=== PATIENT | male | born 1960 | race American Indian/Alaskan Native ===

== ENCOUNTER 2016-04-29 14:14 | Inpatient (IN) | payer MEDICAID ==
[~2016-04-29] VITALS: Ht 157.5 cm; Wt 60.3 kg
[~2016-04-29 14:14] MED LIST: ASPI81CH43; ATOR20TA PO; METH4PAK26 PO; METO50TA7 PO; NITR0.4S31; TRAZ50TA2 PO
[2016-04-29 14:43] LABS: Basophils # (auto) 0 uL; Basophils % (auto) 0.2 % (0.0-2.0); Eosinophils # (auto) 0 uL; Hematocrit 40.8 % (41.0-53.0); Hemoglobin 13.4 g/dL (13.5-17.5); Lymphocytes # (auto) 0.5 uL; Lymphocytes % (auto) 4.4 % (10.0-50.0); Mean Corpuscular Hemoglobin 31.3 pg (28.0-32.0); Mean Corpuscular Hgb Conc. 32.9 g/dL (32.0-36.0); Mean Corpuscular Volume 95.2 fL (80.0-100.0); Mean Platelet Volume 8.2 fL (7.4-10.4); Monocytes # (auto) 0.3 uL; Monocytes % (auto) 2.6 % (0.0-12.0); Neutrophils % (auto) 92.8 % (37.0-80.0); Platelet Count (auto) 228 10^3/uL (140-450); Red Cell Distribution Width 16.9 % (11.6-16.0); White Blood Cell 11.8 10^3/uL (4.4-10.8)
[2016-04-29 15:10] LABS: Albumin 2.9 g/dL (3.4-5.0); BUN/Creatinine Ratio 18.8; Bilirubin, Total 0.5 mg/dL (0.2-1.0); Calcium 8.6 mg/dL (8.5-10.1); Magnesium 2.5 mg/dL (1.6-2.6); Potassium 3.9 mmol/L (3.5-5.1); Total Protein 7.2 g/dL (6.4-8.2)
[2016-04-29] MEDS ORDERED: SODIUM CHLORIDE 0.9% 500 ML IV ONE (15:30)
[2016-04-29] MEDS ORDERED: LEVOFLOXACIN 500MG 100 ML IV ONE (15:30)
[2016-04-29 16:14] LABS: REFLEX LACTIC ACID YES OR NO YES
[2016-04-29] MEDS ORDERED: cefTRIAXone 1GM/50ML D5W 50 ML IV ONE (18:45)
[2016-04-29] MEDS ORDERED: ASPirin 81 mg TAB PO ONE (19:15)
[2016-04-29] MEDS ORDERED: FOLIC ACID 1 MG TAB PO ONE (19:15)
[2016-04-29 19:50] VITALS: BP 105/74
[2016-04-29] MEDS ORDERED: AZITHROMYCIN 500MG/D5W 250ML 250 ML IV ONE (20:00)
[2016-04-29 22:00] VITALS: BP 105/74
[2016-04-29] MEDS ORDERED: traZODone HCL 50 MG TAB PO SCH (22:00)
[2016-04-30] MEDS: SODIUM CHLORIDE 0.9% 1,000 ML IV SCH ×2 (01:04→09:29)
[2016-04-30 04:48] VITALS: BP 113/76
[2016-04-30 05:18] LABS: Basophils # (auto) 0 uL; Basophils % (auto) 0.5 % (0.0-2.0); Eosinophils # (auto) 0 uL; Eosinophils % (auto) 0.5 % (0.0-7.0); Hematocrit 35.2 % (41.0-53.0); Hemoglobin 11.6 g/dL (13.5-17.5); Lymphocytes % (auto) 10.6 % (10.0-50.0); Mean Corpuscular Hemoglobin 31.8 pg (28.0-32.0); Mean Corpuscular Hgb Conc. 32.9 g/dL (32.0-36.0); Mean Corpuscular Volume 96.7 fL (80.0-100.0); Mean Platelet Volume 8.6 fL (7.4-10.4); Monocytes # (auto) 0.7 uL; Monocytes % (auto) 7.6 % (0.0-12.0); Neutrophils # (auto) 7.3 uL; Neutrophils % (auto) 80.8 % (37.0-80.0); Platelet Count (auto) 161 10^3/uL (140-450); Red Cell Distribution Width 15.6 % (11.6-16.0)
[2016-04-30] MEDS ORDERED: cefTRIAXone 1GM/50ML D5W 50 ML IV SCH (09:00)
[2016-04-30] MEDS ORDERED: METHYLPREDNISOLONE 4 MG TAB PO SCH (10:00)
[2016-04-30] MEDS ORDERED: ASPirin 81 mg TAB PO SCH (10:00)
[2016-04-30] MEDS ORDERED: AZITHROMYCIN 500MG/D5W 250ML 250 ML IV SCH (10:00)
[2016-04-30] MEDS ORDERED: FOLIC ACID 1 MG TAB PO SCH (10:00)
== END 2016-04-30 13:40 | disposition home or self-care (01) | DRG 139 ==
LOC: ER 14:14 → OVERFLOW 14:15 → CENTRAL 19:31
PROVIDERS: ADMIT Internal Medicine; ATTEND Internal Medicine
DX: J18.9 Pneumonia, unspecified organism (principal); I10 Essential (primary) hypertension; I25.10 Atherosclerotic heart disease of native coronary artery without angina pectoris; E78.5 Hyperlipidemia, unspecified; T45.1X5A Adverse effect of antineoplastic and immunosuppressive drugs, initial encounter; Z82.49 Family history of ischemic heart disease and other diseases of the circulatory system; Z83.3 Family history of diabetes mellitus; Z85.118 Personal history of other malignant neoplasm of bronchus and lung; Z87.891 Personal history of nicotine dependence; Z92.21 Personal history of antineoplastic chemotherapy; Z92.3 Personal history of irradiation
CPT/HCPCS: 36415; 71010; 71020; 71250; 80053; 83605; 83735; 84484; 85025; 87040; 93005; J0696; J1956

== ENCOUNTER 2017-05-16 12:40 | Observation (INO) | payer MEDICARE, MEDICAID ==
[~2017-05-16] VITALS: Ht 157.5 cm; Wt 58.1 kg
[~2017-05-16 12:40] MED LIST changes: -METO50TA7 PO; -NITR0.4S31
[2017-05-16 13:46] LABS: Basophils # (auto) 0 uL; Basophils % (auto) 1.1 % (0.0-2.0); Eosinophils # (auto) 0 uL; Eosinophils % (auto) 1.1 % (0.0-7.0); Hematocrit 43.6 % (41.0-53.0); Hemoglobin 14.8 g/dL (13.5-17.5); Lymphocytes # (auto) 1.1 uL; Lymphocytes % (auto) 25.7 % (10.0-50.0); Mean Corpuscular Hemoglobin 31.9 pg (28.0-32.0); Mean Corpuscular Volume 93.7 fL (80.0-100.0); Monocytes # (auto) 0.4 uL; Neutrophils # (auto) 2.6 uL; Neutrophils % (auto) 62.1 % (37.0-80.0); Nucleated Red Blood Cells % 0.3 %; Platelet Count (auto) 175 10^3/uL (140-450); Red Blood Cells 4.65 10^6/uL (4.5-5.90); Red Cell Distribution Width 15.5 % (11.8-14.3); White Blood Cell 4.2 10^3/uL (4.4-10.8)
[2017-05-16 14:05] LABS: Albumin 3.8 g/dL (3.4-5.0); BUN/Creatinine Ratio 13.5; Bilirubin, Total 0.6 mg/dL (0.2-1.0); Calcium 8.7 mg/dL (8.5-10.1); Magnesium 2.4 mg/dL (1.6-2.6); Potassium 4.2 mmol/L (3.5-5.1); Total Protein 8.2 g/dL (6.4-8.2)
[2017-05-16] MEDS ORDERED: SODIUM CHLORIDE 0.9% 500 ML IV ONE (18:00)
[2017-05-16] MEDS ORDERED: ASPirin 81 mg TAB PO ONE (18:00)
[2017-05-16 18:54] LABS: INR 0.92 (0.9-1.15); Partial Thromboplastin Time 30.6 sec (22.64-33.71)
[2017-05-16 20:05] VITALS: BP 116/91
== END 2017-05-16 21:04 | disposition left against medical advice (07) | DRG 303 ==
LOC: ER 12:40 → OVERFLOW 17:48 → ER 21:03
PROVIDERS: ADMIT Family Medicine; ATTEND Family Medicine
DX: I25.110 Atherosclerotic heart disease of native coronary artery with unstable angina pectoris (principal); C34.91 Malignant neoplasm of unspecified part of right bronchus or lung; I10 Essential (primary) hypertension; E78.5 Hyperlipidemia, unspecified; Z82.49 Family history of ischemic heart disease and other diseases of the circulatory system; Z83.3 Family history of diabetes mellitus; Z85.118 Personal history of other malignant neoplasm of bronchus and lung; Z87.891 Personal history of nicotine dependence
CPT/HCPCS: 36415; 71046; 80053; 83735; 83880; 84443; 84484; 85025; 85610; 85730; 93005; 96360; 96361; 99285; G0378; J7040

== ENCOUNTER 2017-05-20 14:16 | Inpatient (IN) | payer MEDICARE, MEDICAID ==
[~2017-05-20] VITALS: Ht 157.5 cm; Wt 67.9 kg
[2017-05-20 15:45] LABS: Albumin 3.7 g/dL (3.4-5.0); Basophils # (auto) 0 uL; Basophils % (auto) 0.5 % (0.0-2.0); Calcium 8.5 mg/dL (8.5-10.1); Eosinophils # (auto) 0 uL; Eosinophils % (auto) 0.1 % (0.0-7.0); Hematocrit 43.9 % (41.0-53.0); Hemoglobin 14.5 g/dL (13.5-17.5); Lymphocytes # (auto) 0.8 uL; Lymphocytes % (auto) 8.8 % (10.0-50.0); Mean Corpuscular Hemoglobin 31.6 pg (28.0-32.0); Mean Corpuscular Hgb Conc. 33.1 g/dL (32.0-36.0); Mean Corpuscular Volume 95.3 fL (80.0-100.0); Monocytes # (auto) 0.7 uL; Monocytes % (auto) 7.6 % (0.0-12.0); Neutrophils # (auto) 7.3 uL; Platelet Count (auto) 195 10^3/uL (140-450); Potassium 3.8 mmol/L (3.5-5.1); Red Blood Cells 4.61 10^6/uL (4.5-5.90); Red Cell Distribution Width 15.4 % (11.8-14.3); White Blood Cell 8.8 10^3/uL (4.4-10.8)
[2017-05-20 15:52] LABS: Bilirubin, Total 0.5 mg/dL (0.2-1.0); Total Protein 7.8 g/dL (6.4-8.2)
[2017-05-20] MEDS ORDERED: SODIUM CHLORIDE 0.9% 1,000 ML IV ONE (16:36)
[2017-05-20] MEDS ORDERED: MECLIZINE HCL 25 MG TAB PO ONE (16:45)
[2017-05-20] MEDS: SODIUM CHLORIDE 0.9% 1,000 ML IV SCH (18:11)
[2017-05-20] MEDS ORDERED: LORazepam 0.5 MG TAB PO PRN (18:15)
[2017-05-20] MEDS ORDERED: ALBUTEROL SULF 2.5 MG/0.5ML(0.5%) NEB SOLN NEB PRN (18:15)
[2017-05-20] MEDS ORDERED: MORPHINE SULF INJ 2 MG/ML SYRINGE 1ML IV PRN (18:15)
[2017-05-20] MEDS ORDERED: HYDROcodone-ACET 5/325MG TAB PO PRN (18:15)
[2017-05-20] MEDS ORDERED: PROMETHAZINE HCL 25 MG/ML 1ML IV PRN (18:15)
[2017-05-20] MEDS ORDERED: NITROGLYCERIN 0.4 MG SL TAB SL PRN (18:15)
[2017-05-20] MEDS ORDERED: LACTULOSE 20Gm/30ML SOLN PO PRN ×2 (18:15)
[2017-05-20] MEDS ORDERED: cefTRIAXone 1GM/10ml IVPUSH 10 ML IV ONE (18:15)
[2017-05-20] MEDS ORDERED: TEMAZEPAM 15 MG CAP PO PRN (18:15)
[2017-05-20] MEDS ORDERED: MORPHINE SULFATE 10 MG/ML INJ 1ML SDV IV PRN (18:15)
[2017-05-20 18:37] LABS: CRP High Sensitivity 0.13 mg/dL (< 0.3)
[2017-05-20 18:46] LABS: Folate (Folic Acid) > 24.00 ng/mL (5.38-24)
[2017-05-20 19:24] LABS: Free T3 2.05 pg/mL (2.3-4.2); Free T4 (Free Thyroxine) 1.31 ng/dL (0.89-1.76)
[2017-05-20] MEDS: ACETAMINOPHEN 500 MG TAB PO PRN ×2 (20:51→20:53)
[2017-05-20 22:00] VITALS: BP_SYST 126; BP_SYST 138; BP_DIAS 65; BP_DIAS 81
[2017-05-20] MEDS: METOPROLOL TARTRATE 25 MG TAB PO SCH (22:00)
[2017-05-20] MEDS ORDERED: traZODone HCL 50 MG TAB PO SCH (22:00)
[2017-05-20] MEDS ORDERED: ATORVASTATIN 20 MG TAB PO SCH (22:00)
[2017-05-20] MEDS: ALBUTEROL SULF 2.5 MG/0.5ML(0.5%) NEB SOLN NEB SCH (23:56)
[2017-05-21] VITALS (69 sets, daily range): BP systolic 64–157; BP diastolic 41–103
[2017-05-21] MEDS ORDERED: HYDROmorphone HCL 2 MG/ML VL IV ONE ×2 (02:45→03:00)
[2017-05-21] MEDS ORDERED: NALOXONE HCL 0.4 MG/ML VIAL ONE (05:23)
[2017-05-21] MEDS ORDERED: METOPROLOL TARTRATE 1MG/1ML-5ML VIAL IV ONE (05:41)
[2017-05-21] MEDS: FUROSEMIDE 40 MG/4 ML VIAL IV ONE ×2 (06:00→09:25)
[2017-05-21] MEDS ORDERED: SUCCINYLCHOLINE CHLORIDE 20 MG/ML 10ML VIAL IV ONE ×2 (06:02→06:15)
[2017-05-21] MEDS ORDERED: ETOMIDATE (2MG/ML) 20ML VIAL IV ONE ×2 (06:03→06:15)
[2017-05-21] MEDS ORDERED: NOREPINEPHRINE 8 MG/250ML KIT 250 ML IV ONE (06:13)
[2017-05-21] MEDS ORDERED: PROPOFOL 100 ML IV ONE (06:17)
[2017-05-21] MEDS: PROPOFOL 100 ML IV SCH (06:59)
[2017-05-21 07:12] LABS: Hemoglobin 14.6 g/dL (13.5-17.5)
[2017-05-21 07:42] LABS: Albumin 3.8 g/dL (3.4-5.0); BUN/Creatinine Ratio 14.1; Bilirubin, Total 0.7 mg/dL (0.2-1.0); Calcium 8.3 mg/dL (8.5-10.1); Potassium 4.2 mmol/L (3.5-5.1); Total Protein 8.3 g/dL (6.4-8.2)
[2017-05-21 07:45] LABS: INR 0.95 (0.9-1.15); Partial Thromboplastin Time 30.1 sec (22.64-33.71); Prothrombin Time 10.3 sec (9.37-12.3)
[2017-05-21] MEDS ORDERED: PANTOPRAZOLE 40 MG/10 ML VIAL IV ONE (08:03)
[2017-05-21] MEDS ORDERED: cefTRIAXone 1GM/10ml IVPUSH 10 ML IV SCH (09:00)
[2017-05-21] MEDS ORDERED: ACETAMINOPHEN 650 mg PER 20 mL UD ONE (09:10)
[2017-05-21] MEDS ORDERED: ACETAMINOPHEN 650 mg PER 20 mL UD PO PRN (09:15)
[2017-05-21] MEDS ORDERED: VANCOMYCIN PER PHARMACY 0 MG IV SCH (09:15)
[2017-05-21] MEDS: METOPROLOL TARTRATE 25 MG TAB PO SCH (09:26)
[2017-05-21] MEDS: PANTOPRAZOLE 40 MG/10 ML VIAL IV SCH ×2 (09:26→22:23)
[2017-05-21] MEDS: ALBUTEROL SULF 2.5 MG/0.5ML(0.5%) NEB SOLN NEB SCH ×3 (09:34→18:31)
[2017-05-21 09:46] LABS: Alcohol, Urine < 3.0 mg/dL (0-5); Amphetamine Screen, Urine NEGATIVE (NEGATIVE); Barbiturate Scree,Urine NEGATIVE (NEGATIVE); Benzodiazephine Screen, Urine NEGATIVE (NEGATIVE); Cannabinoid Screen, Urine POSITIVE (NEGATIVE); Cocaine Screen, Urine NEGATIVE (NEGATIVE); Opiate Scree,Urine POSITIVE (NEGATIVE); Phencyclidine Screen, Urine NEGATIVE (NEGATIVE)
[2017-05-21 09:48] LABS: Urine Bacteria NONE SEEN /hpf (None Seen); Urine Blood 1+ /uL (Negative); Urine Specific Gravity 1.023 (1.001-1.035); Urine WBC 5 /hpf (0 - 3)
[2017-05-21] MEDS ORDERED: ENOXAPARIN SOD 40 MG/0.4 ML SYRINGE SC SCH ×2 (10:00)
[2017-05-21] MEDS: VANCOMYCIN 1GM/250ML 250 ML IV SCH ×2 (10:00→22:22)
[2017-05-21] MEDS ORDERED: ASPirin 81 mg TAB PO SCH (10:00)
[2017-05-21] MEDS ORDERED: AZITHROMYCIN 500MG/ 250ML 250 ML IV SCH (10:00)
[2017-05-21] MEDS ORDERED: NITROGLYCERIN 0.2MG/HR TOPICAL PATCH TD SCH (10:00)
[2017-05-21] MEDS ORDERED: ALBUMIN 25% 200 ML IV ONE (11:42)
[2017-05-21] MEDS: ALBUMIN 25% 100 ML IV SCH ×2 (11:45→13:38)
[2017-05-21] MEDS: NOREPINEPHRINE 8 MG/250ML KIT 250 ML IV SCH ×3 (12:11→20:17)
[2017-05-21] MEDS ORDERED: ALBUMIN 25% 100 ML IV ONE (12:15)
[2017-05-21] MEDS: SODIUM CHLORIDE 0.9% 1,000 ML IV SCH ×2 (12:34→20:19)
[2017-05-21] MEDS: PIPERACILLIN-TAZOB 3.375GM 50 ML IV SCH ×2 (13:37→18:27)
[2017-05-21] MEDS ORDERED: MORPHINE SULFATE 4 MG/ML SYR/VIAL IV PRN ×2 (19:45)
[2017-05-22] VITALS (104 sets, daily range): BP systolic 68–167; BP diastolic 42–121
[2017-05-22] MEDS: ALBUTEROL SULF 2.5 MG/0.5ML(0.5%) NEB SOLN NEB SCH ×2 (00:24→08:36)
[2017-05-22] MEDS: PIPERACILLIN-TAZOB 3.375GM 50 ML IV SCH ×4 (00:27→20:56)
[2017-05-22] MEDS: NOREPINEPHRINE 8 MG/250ML KIT 250 ML IV SCH (00:40)
[2017-05-22] MEDS: MIDAZOLAM DRIP 50 mg/50mL 50 ML IV SCH ×2 (01:38→05:49)
[2017-05-22 04:10] LABS: Basophils # (auto) 0 uL; Basophils % (auto) 0.4 % (0.0-2.0); Eosinophils # (auto) 0 uL; Eosinophils % (auto) 0.3 % (0.0-7.0); Hematocrit 42.5 % (41.0-53.0); Hemoglobin 14.4 g/dL (13.5-17.5); Lymphocytes # (auto) 0.7 uL; Lymphocytes % (auto) 7.4 % (10.0-50.0); Mean Corpuscular Hemoglobin 31.5 pg (28.0-32.0); Mean Corpuscular Hgb Conc. 33.8 g/dL (32.0-36.0); Mean Corpuscular Volume 93.3 fL (80.0-100.0); Monocytes # (auto) 0.5 uL; Monocytes % (auto) 5.8 % (0.0-12.0); Neutrophils # (auto) 8.1 uL; Neutrophils % (auto) 86.1 % (37.0-80.0); Nucleated Red Blood Cells % 0.1 %; Platelet Count (auto) 154 10^3/uL (140-450); Red Blood Cells 4.56 10^6/uL (4.5-5.90); Red Cell Distribution Width 15.6 % (11.8-14.3); White Blood Cell 9.4 10^3/uL (4.4-10.8)
[2017-05-22 04:20] LABS: BUN/Creatinine Ratio 10.3; Bilirubin, Total 1.4 mg/dL (0.2-1.0); Calcium 8.4 mg/dL (8.5-10.1); Potassium 3.7 mmol/L (3.5-5.1); Total Protein 7.9 g/dL (6.4-8.2)
[2017-05-22] MEDS: PROPOFOL 100 ML IV SCH (06:59)
[2017-05-22] MEDS: SODIUM CHLORIDE 0.9% 1,000 ML IV SCH (08:15)
[2017-05-22] MEDS: PANTOPRAZOLE 40 MG/10 ML VIAL IV SCH ×2 (10:00→21:38)
[2017-05-22] MEDS: VANCOMYCIN 1GM/250ML 250 ML IV SCH ×2 (10:00→22:30)
[2017-05-22] MEDS: NOREPINEPHRINE BITARTRATE 32 MG in D5W 5% 218 ML IV SCH (10:15)
[2017-05-22] MEDS ORDERED: AZITHROMYCIN 500MG/ 250ML 250 ML IV SCH (11:00)
[2017-05-22] MEDS ORDERED: SOD CHL 0.45% 1,000 ML IV ONE (11:15)
[2017-05-22] MEDS ORDERED: PHENYLEPHRINE INJ 20 MG in SODIUM CHL 0.9% 250 ML IV SCH (11:20)
[2017-05-22] MEDS ORDERED: ALBUTEROL SULF 2.5 MG/0.5ML(0.5%) NEB SOLN NEB PRN (11:30)
[2017-05-22] MEDS: PHENYLEPHRINE INJ 20 MG in D5W 5% 250 ML IV SCH ×2 (11:45→16:32)
[2017-05-22 11:58] LABS: Magnesium 2.5 mg/dL (1.6-2.6); Phosphorus 1.5 mg/dL (2.5-4.90)
[2017-05-22] MEDS: SOD CHL 0.45% WITH 20MEQ KCL 1,000 ML IV SCH (12:13)
[2017-05-22] MEDS ORDERED: FLUCONAZOLE 200MG/100ML 100 ML IV ONE (13:00)
[2017-05-22] MEDS ORDERED: PIPERACILLIN-TAZOB 3.375GM 50 ML IV SCH (13:00)
[2017-05-22] MEDS: FREE WATER GT SCH ×3 (14:30→21:38)
[2017-05-22] MEDS: LEVALBUTEROL HCL 1.25 MG/3 ML NEB IN SCH ×2 (15:06→21:59)
[2017-05-23] VITALS (103 sets, daily range): BP systolic 69–177; BP diastolic 48–113
[2017-05-23] MEDS: SOD CHL 0.45% WITH 20MEQ KCL 1,000 ML IV SCH ×2 (00:50→03:30)
[2017-05-23] MEDS: PIPERACILLIN-TAZOB 3.375GM 50 ML IV SCH ×4 (02:07→20:57)
[2017-05-23] MEDS: FREE WATER GT SCH ×7 (02:07→21:43)
[2017-05-23] MEDS: PHENYLEPHRINE INJ 20 MG in D5W 5% 250 ML IV SCH (03:30)
[2017-05-23 05:18] LABS: Basophils # (auto) 0.1 uL; Basophils % (auto) 0.6 % (0.0-2.0); Eosinophils # (auto) 0.1 uL; Eosinophils % (auto) 0.9 % (0.0-7.0); Hematocrit 43.3 % (41.0-53.0); Hemoglobin 14.6 g/dL (13.5-17.5); Lymphocytes # (auto) 0.8 uL; Lymphocytes % (auto) 7.7 % (10.0-50.0); Mean Corpuscular Hgb Conc. 33.6 g/dL (32.0-36.0); Mean Corpuscular Volume 95.2 fL (80.0-100.0); Monocytes # (auto) 0.6 uL; Monocytes % (auto) 5.8 % (0.0-12.0); Neutrophils # (auto) 8.4 uL; Nucleated Red Blood Cells % 0.1 %; Red Blood Cells 4.55 10^6/uL (4.5-5.90); Red Cell Distribution Width 16.1 % (11.8-14.3); White Blood Cell 9.9 10^3/uL (4.4-10.8)
[2017-05-23 05:25] LABS: Platelet Count (auto) 129 10^3/uL (140-450)
[2017-05-23] MEDS: LEVALBUTEROL HCL 1.25 MG/3 ML NEB IN SCH ×3 (06:27→22:00)
[2017-05-23 06:36] LABS: BUN/Creatinine Ratio 8.7; Calcium 9.6 mg/dL (8.5-10.1); Potassium 3.7 mmol/L (3.5-5.1)
[2017-05-23] MEDS: MIDAZOLAM DRIP 50 mg/50mL 50 ML IV SCH (06:59)
[2017-05-23] MEDS: PROPOFOL 100 ML IV SCH (06:59)
[2017-05-23] MEDS: VANCOMYCIN 1GM/250ML 250 ML IV SCH ×2 (10:00→21:43)
[2017-05-23] MEDS: PANTOPRAZOLE 40 MG/10 ML VIAL IV SCH ×2 (10:28→21:44)
[2017-05-23] MEDS: NOREPINEPHRINE BITARTRATE 32 MG in D5W 5% 218 ML IV SCH (10:28)
[2017-05-23] MEDS ORDERED: PHENYLEPHRINE INJ 80 MG in SODIUM CHL 0.9% 250 ML IV SCH (11:34)
[2017-05-23] MEDS: PHENYLEPHRINE INJ 80 MG in D5W 5% 250 ML IV SCH ×2 (12:18→20:58)
[2017-05-23] MEDS ORDERED: SODIUM CHLORIDE 0.9% 1,000 ML IV SCH ×3 (14:30→16:15)
[2017-05-23] MEDS: FLUCONAZOLE 200MG/100ML 100 ML IV SCH (15:00)
[2017-05-23] MEDS: VASOPRESSIN 50 UNITS in D5W 5% 247.5 ML IV SCH (16:15)
[2017-05-23] MEDS: SODIUM CHLORIDE 0.9% 1,000 ML IV SCH (19:15)
[2017-05-24] VITALS (104 sets, daily range): BP systolic 81–138; BP diastolic 16–102
[2017-05-24] MEDS: SODIUM CHLORIDE 0.9% 1,000 ML IV SCH ×4 (01:11→21:40)
[2017-05-24] MEDS: FREE WATER GT SCH ×6 (02:00→22:13)
[2017-05-24] MEDS: PIPERACILLIN-TAZOB 3.375GM 50 ML IV SCH ×4 (02:00→20:00)
[2017-05-24 03:55] LABS: Hematocrit 40.2 % (41.0-53.0); Hemoglobin 12.9 g/dL (13.5-17.5); Mean Corpuscular Hemoglobin 31.4 pg (28.0-32.0); Mean Corpuscular Hgb Conc. 32.2 g/dL (32.0-36.0); Mean Corpuscular Volume 97.4 fL (80.0-100.0); Platelet Count (auto) 82 10^3/uL (140-450); Red Blood Cells 4.13 10^6/uL (4.5-5.90); Red Cell Distribution Width 16.9 % (11.8-14.3); White Blood Cell 7.2 10^3/uL (4.4-10.8)
[2017-05-24 03:57] LABS: Basophils % (manual) 0 (0.0-2.0); Blast Cells 0; Metamyelocytes % 0; Myelocytes % 0; Promyelocytes % 0; Reactive Lymphocytes 0
[2017-05-24 04:11] LABS: Potassium 3.2 mmol/L (3.5-5.1)
[2017-05-24 04:12] LABS: BUN/Creatinine Ratio 8.4; Calcium 8.4 mg/dL (8.5-10.1)
[2017-05-24 05:10] LABS: Band Neutrophils % (manual) 3
[2017-05-24 05:11] LABS: Eosinophils % (manual) 2 (0-7); Lymphocytes % (manual) 8 (10.0-50.0); Monocytes % (manual) 3 (0-12)
[2017-05-24] MEDS: LEVALBUTEROL HCL 1.25 MG/3 ML NEB IN SCH ×3 (06:05→22:31)
[2017-05-24] MEDS: PROPOFOL 100 ML IV SCH (06:11)
[2017-05-24] MEDS: MIDAZOLAM DRIP 50 mg/50mL 50 ML IV SCH (06:11)
[2017-05-24] MEDS: POTASSIUM CHL 20MEQ/100ML 100 ML IV SCH ×4 (08:30→10:30)
[2017-05-24] MEDS: NOREPINEPHRINE BITARTRATE 32 MG in D5W 5% 218 ML IV SCH ×2 (09:09→14:15)
[2017-05-24] MEDS: VANCOMYCIN 1GM/250ML 250 ML IV SCH (10:00)
[2017-05-24] MEDS: PANTOPRAZOLE 40 MG/10 ML VIAL IV SCH ×2 (10:13→22:13)
[2017-05-24] MEDS: FLUCONAZOLE 200MG/100ML 100 ML IV SCH (13:00)
[2017-05-24] MEDS: PHENYLEPHRINE INJ 80 MG in D5W 5% 250 ML IV SCH (14:15)
[2017-05-24] MEDS: VASOPRESSIN 50 UNITS in D5W 5% 247.5 ML IV SCH (14:53)
[2017-05-25] VITALS (105 sets, daily range): BP systolic 78–157; BP diastolic 53–103
[2017-05-25] MEDS: PIPERACILLIN-TAZOB 3.375GM 50 ML IV SCH ×4 (02:00→20:00)
[2017-05-25] MEDS: FREE WATER GT SCH ×6 (02:00→22:00)
[2017-05-25 03:57] LABS: Platelet Count (auto) 44 10^3/uL (140-450)
[2017-05-25 03:59] LABS: Hemoglobin 12.4 g/dL (13.5-17.5); Mean Corpuscular Volume 97.5 fL (80.0-100.0); Red Blood Cells 3.89 10^6/uL (4.5-5.90); White Blood Cell 5.8 10^3/uL (4.4-10.8)
[2017-05-25 04:00] LABS: Mean Corpuscular Hemoglobin 31.8 pg (28.0-32.0); Mean Corpuscular Hgb Conc. 32.6 g/dL (32.0-36.0); Red Cell Distribution Width 17.4 % (11.8-14.3)
[2017-05-25 04:07] LABS: Basophils % (manual) 0 (0.0-2.0); Blast Cells 0; Metamyelocytes % 0; Myelocytes % 0; Promyelocytes % 0; Reactive Lymphocytes 0
[2017-05-25 04:17] LABS: Calcium 8.2 mg/dL (8.5-10.1); Potassium 4.5 mmol/L (3.5-5.1)
[2017-05-25 04:20] LABS: BUN/Creatinine Ratio 8.4
[2017-05-25] MEDS: SODIUM CHLORIDE 0.9% 1,000 ML IV SCH (04:20)
[2017-05-25 05:07] LABS: Band Neutrophils % (manual) 19; Eosinophils % (manual) 2 (0-7); Lymphocytes % (manual) 9 (10.0-50.0); Monocytes % (manual) 8 (0-12)
[2017-05-25] MEDS: LEVALBUTEROL HCL 1.25 MG/3 ML NEB IN SCH ×3 (05:53→22:25)
[2017-05-25] MEDS ORDERED: SODIUM BICARBONATE 8.4 % INJ 50ML VIAL IV ONE (06:00)
[2017-05-25] MEDS: SODIUM BICARBONATE 50ML VIAL 100 ML in SOD CHL 0.45% 1,000 ML IV SCH ×2 (06:00→15:25)
[2017-05-25] MEDS ORDERED: SODIUM BICARBONATE 8.4% INJ 50ML SYRINGE ONE (06:02)
[2017-05-25] MEDS: PROPOFOL 100 ML IV SCH (08:00)
[2017-05-25] MEDS: MIDAZOLAM DRIP 50 mg/50mL 50 ML IV SCH (08:00)
[2017-05-25] MEDS: PANTOPRAZOLE 40 MG/10 ML VIAL IV SCH ×2 (09:25→22:00)
[2017-05-25] MEDS ORDERED: LINEZOLID 600MG/300ML 300 ML IV SCH (10:00)
[2017-05-25] MEDS: FLUCONAZOLE 200MG/100ML 100 ML IV SCH (12:44)
[2017-05-25] MEDS: VASOPRESSIN 50 UNITS in D5W 5% 247.5 ML IV SCH ×2 (16:15→20:49)
[2017-05-25] MEDS: PHENYLEPHRINE INJ 80 MG in D5W 5% 250 ML IV SCH (20:15)
[2017-05-25] MEDS: NOREPINEPHRINE BITARTRATE 32 MG in D5W 5% 218 ML IV SCH (23:45)
[2017-05-26] VITALS (61 sets, daily range): BP systolic 106–164; BP diastolic 49–104
[2017-05-26] MEDS: SODIUM BICARBONATE 50ML VIAL 100 ML in SOD CHL 0.45% 1,000 ML IV SCH ×2 (01:35→13:00)
[2017-05-26] MEDS: FREE WATER GT SCH ×3 (02:00→09:55)
[2017-05-26] MEDS: PIPERACILLIN-TAZOB 3.375GM 50 ML IV SCH ×2 (02:00→08:30)
[2017-05-26] MEDS: LEVALBUTEROL HCL 1.25 MG/3 ML NEB IN SCH (05:52)
[2017-05-26] MEDS: PROPOFOL 100 ML IV SCH (06:59)
[2017-05-26] MEDS: MIDAZOLAM DRIP 50 mg/50mL 50 ML IV SCH (06:59)
[2017-05-26] MEDS: PANTOPRAZOLE 40 MG/10 ML VIAL IV SCH (09:55)
[2017-05-26 10:36] LABS: Basophils # (auto) 0 uL; Eosinophils # (auto) 0.1 uL; Eosinophils % (auto) 0.5 % (0.0-7.0); Lymphocytes # (auto) 0.7 uL; Monocytes # (auto) 0.6 uL
[2017-05-26 10:37] LABS: Albumin 1.6 g/dL (3.4-5.0); BUN/Creatinine Ratio 8.3; Bilirubin, Total 0.8 mg/dL (0.2-1.0); Calcium 7.7 mg/dL (8.5-10.1); Phosphorus 5.2 mg/dL (2.5-4.90); Potassium 4.1 mmol/L (3.5-5.1); Total Protein 5.4 g/dL (6.4-8.2)
[2017-05-26 10:40] LABS: Basophils % (auto) 0.2 % (0.0-2.0); Hematocrit 37.5 % (41.0-53.0); Hemoglobin 12.2 g/dL (13.5-17.5); Lymphocytes % (auto) 6.3 % (10.0-50.0); Mean Corpuscular Hemoglobin 31.1 pg (28.0-32.0); Mean Corpuscular Hgb Conc. 32.6 g/dL (32.0-36.0); Mean Corpuscular Volume 95.6 fL (80.0-100.0); Monocytes % (auto) 5.6 % (0.0-12.0); Neutrophils # (auto) 9.4 uL; Neutrophils % (auto) 87.4 % (37.0-80.0); Nucleated Red Blood Cells % 0.4 %; Platelet Count (auto) 33 10^3/uL (140-450); Red Blood Cells 3.92 10^6/uL (4.5-5.90); Red Cell Distribution Width 17.5 % (11.8-14.3); White Blood Cell 10.8 10^3/uL (4.4-10.8)
[2017-05-26] MEDS: FLUCONAZOLE 200MG/100ML 100 ML IV SCH (12:31)
[2017-05-26] MEDS: PHENYLEPHRINE INJ 80 MG in D5W 5% 250 ML IV SCH (13:15)
[2017-05-26] MEDS ORDERED: LORazepam 2MG/ML-1ML VIAL IV PRN (14:30)
[2017-05-26] MEDS ORDERED: MORPHINE SULFATE 4 MG/ML SYR/VIAL IV PRN (14:30)
== END 2017-05-26 18:50 | disposition expired | DRG 870 ==
LOC: ER 14:16 → EDBD 14:16 → TELE 14:17 → TELE-WESTW 20:20 → ICU WEST 05-21 08:30
PROVIDERS: ADMIT Internal Medicine; ATTEND Internal Medicine
PROC: 5A1955Z Respiratory Ventilation, Greater than 96 Consecutive Hours (ICD-10-PCS; principal; 2017-05-21)
PROC: 0BH17EZ Insertion of Endotracheal Airway into Trachea, Via Natural or Artificial Opening (ICD-10-PCS; 2017-05-21)
PROC: 02H633Z Insertion of Infusion Device into Right Atrium, Percutaneous Approach (ICD-10-PCS; 2017-05-21)
DX: A41.9 Sepsis, unspecified organism (principal); I21.4 Non-ST elevation (NSTEMI) myocardial infarction; N17.0 Acute kidney failure with tubular necrosis; J96.00 Acute respiratory failure, unspecified whether with hypoxia or hypercapnia; R40.20 Unspecified coma; J69.0 Pneumonitis due to inhalation of food and vomit; G92 Toxic encephalopathy; B37.89 Other sites of candidiasis; R65.21 Severe sepsis with septic shock; C34.91 Malignant neoplasm of unspecified part of right bronchus or lung; K92.0 Hematemesis; E87.0 Hyperosmolality and hypernatremia; I42.9 Cardiomyopathy, unspecified; G93.1 Anoxic brain damage, not elsewhere classified; G93.89 Other specified disorders of brain; Z51.5 Encounter for palliative care; Z66 Do not resuscitate; E03.9 Hypothyroidism, unspecified; K59.00 Constipation, unspecified; F41.9 Anxiety disorder, unspecified; I25.10 Atherosclerotic heart disease of native coronary artery without angina pectoris; I51.4 Myocarditis, unspecified; G47.00 Insomnia, unspecified; I10 Essential (primary) hypertension; E78.5 Hyperlipidemia, unspecified; Z87.891 Personal history of nicotine dependence; Z82.49 Family history of ischemic heart disease and other diseases of the circulatory system; Z83.3 Family history of diabetes mellitus; Z92.21 Personal history of antineoplastic chemotherapy; Z95.5 Presence of coronary angioplasty implant and graft; Z79.899 Other long term (current) drug therapy
CPT/HCPCS: 36415; 36600; 51702; 70450; 71045; 71046; 80048; 80053; 80061; 80202; 80307; 81001; 82550; 82607; 82746; 82805; 82962; 83735; 83880; 84100; 84439; 84443; 84481; 84484; 85007; 85014; 85018; 85025; 85027; 85379; 85610; 85652; 85730; 86141; 87040; 87070; 87081; 87205; 93005; 93306; 93886; 94002; 94003; 94640; 95819; 96374; 97163; C9113; J0330; J1450; J2250; J2543; J2704; J3480; J3490; J7060